=== PATIENT | male | born 1985 | race Caucasian/White ===

== ENCOUNTER 2017-01-02 08:09 | Emergency (ER) | payer OTHER ==
[~2017-01-02] VITALS: Ht 170.2 cm; Wt 168.0 kg
[2017-01-02 08:13] VITALS: BP 138/91; PULSE 101; RESP 16; O2SAT 99
--- NOTE | 2017-01-02 08:30 | ED.REPORT ---
HPI-General Illness Date of Service Jan 02, 2017 ED Provider: Neto Wang MD Patient is a 31 year old male who presents to the ED complaining of a headache onset two days ago. Associated symptoms include nausea, vomiting and diarrhea onset yesterday. Patient reports that he is very anxious and has not been able to sleep the last few nights. The patient states he relapsed on Oxycodone on and last used three days ago. He was off Oxycodone for 85 days before that and thinks he might be going through withdraw now. Nursing Notes Stated Complaint: ANXIETY Chief Complaint: General Complaint Nursing Notes Reviewed: Yes Allergies: Coded Allergies: No Known Allergies (Unverified , 01/02/17) Scheduled Clonidine (Clonidine) 0.2 Mg Tablet 0.2 MG PO BID Hydroxyzine Pamoate (HydrOXYzine Pamoate) 25 Mg Capsule 25 MG PO Q6 Scheduled PRN Ondansetron ODT (Ondansetron ODT) 4 Mg Tab.rapdis 4 MG PO QID PRN PRN For Nausea General Time Seen by MD: 08:29 Chief Complaint Headache Hx Obtained From: Patient Arrived By: Walk-in Onset Occurred: 2 days ago Symptom Duration: Since onset Location: : Head Quality: Painful Radiation: : Does not radiate Severity: Current: Moderate Recent Healthcare: No recent hospitalization Past Medical History Past Medical History none reported Smoking History Unknown if Ever Smoker Social History Drug Use: Other (oxycodone) Other Social History: Good social support Ambulatory Status Independent Review of Systems Full Review of Systems Constitutional: Denies: Chills, Fever Respiratory: Denies: Non-productive cough, Shortness of breath GI: Reports: Diarrhea, Nausea, Vomiting Skin: Denies Itching, Denies Rash Neurologic: Reports: Headache Psychiatric: Reports: Anxiety, Insomnia Complete sys rev & neg: except as marked. Physical Exam Vital Signs Vital Signs Date Time Temp Pulse Resp B/P Pulse Ox O2 Delivery O2 Flow Rate FiO2 01/02/17 13:05 85 16 133/90 98 01/02/17 10:23 67 16 138/88 100 01/02/17 08:13 37.0 101 16 138/91 99 Initial VS: Reviewed General/Constitutional: Awake, Alert Head / Eyes: Atraumatic, Normocephalic, PERRL, EOMI Respiratory / Chest: Atraumatic, Breath sounds NL, Breath sounds = bilat, No respiratory distress Cardiovascular: Heart rate NL, Regular rhythm, Heart sounds NL, No gallop, No murmurs, No rubs Abdomen: Atraumatic, Soft, Non-tender, BS normoactive Upper Extremities Upper Extremity / MS: Atraumatic, Full range of motion Lower Extremity / Pelvis / MS: Atraumatic, Full range of motion Skin: Atraumatic, Color NL, No rash, Warm, Dry Neurologic: Oriented X3, Speech NL Re-Eval/Medical Decision Med Decision/Clinical Course Requested ativan for anxiety- I declined. Gave hydroxyzine for anxiety/agitation, zofran for nausea, toradol for MILLAN and bodyaches. Gave NSSx1L. Will discharge home, pt plans to return to [place] soon. Declined referral to [facility] or sobering services. Time of Eval: 12:40 Re-Evaluation/Progress Note: Discussed plan for discharge. Patient understands and agrees to plan. All questions were addressed. Counseled Regarding: Diagnosis, Lab results, Need for follow-up, When/why to return to ED Discharge & Departure Primary Impression: Opiate withdrawal Disposition: Home Discharge Condition All VS Reviewed: Yes Condition: Stable Patient Instructions: Opioid Dependence (ED) Additional Instructions: Emergency Department evaluation included interview and examination. We treated with IV fluids, nonnarcotic pain medications, nausea medications and hydroxyzine for anxiety and insomnia. He also gave loperamide for cramps and diarrhea. We expect that you should start feeling better soon. It is important to maintain abstinence from opiates. Follow-up with 12 step meetings and outpatient treatment. Use ondansetron as needed for nausea and vomiting, use loperamide (Imodium) available [id number] as needed for diarrhea and abdominal cramping. Hydroxyzine 25-50 mg every 6-8 hours as needed for anxiety and insomnia. Clonidine 0.2mg twice daily will also help withdrawal symptoms. Tylenol and/or ibuprofen as needed for headaches and body aches. Get established with primary care logan when you return to [place] Referrals: [facility] Scribe Attestation Portions of this note were transcribed by Nicole Zaldivar. I, Dr. Wang personally performed the history, physical exam and medical decision-making; I reviewed and confirmed the accuracy of the information in the transcribed note. Signed by: Marlen Collado, 01/02/17 Neto Wang MD Jan 02, 2017 08:30 Carmel Zaldivar Jan 02, 2017 08:33
[2017-01-02] MEDS ORDERED: 0.9% Sodium Chloride 1,000 ML IV ONE (08:52)
[2017-01-02] MEDS ORDERED: Ondansetron 2 mg/mL 2 mL Inj IVPUSH ONE (08:55)
[2017-01-02 10:23] VITALS: BP 138/88; PULSE 67; RESP 16; O2SAT 100
[2017-01-02] MEDS ORDERED: HYDR-3797 PO (12:47)
[2017-01-02] MEDS ORDERED: CLON0.2T PO (12:47)
[2017-01-02] MEDS ORDERED: ONDA4TAB12 PO (12:47)
[2017-01-02 13:05] VITALS: BP 133/90; PULSE 85; RESP 16; O2SAT 98
== END 2017-01-02 13:06 | disposition home or self-care (01) ==
LOC: SED 08:09
DX: F11.23 Opioid dependence with withdrawal (principal)
CPT/HCPCS: 96361; 96374; 96375; 99284; J1885; J2405; J7030; Q0177